=== PATIENT | female | born 1985 | race Caucasian/White ===

== ENCOUNTER 2016-10-12 19:21 | Emergency (ER) | payer OTHER ==
[~2016-10-12] VITALS: Ht 172.7 cm; Wt 117.0 kg
[2016-10-12 19:29] VITALS: BP 138/70; PULSE 105; RESP 18; O2SAT 98
[2016-10-12] MEDS ORDERED: Ondansetron 2 mg/mL 2 mL Inj IV PRN (19:45)
--- NOTE | 2016-10-12 19:56 | ED.REPORT ---
HPI-General Illness Date of Service Oct 12, 2016 ED Provider: Dr. De Santiago Pt is a healthy 30 y/o female presenting to the ED via EMS with family due to possible seizure which occurred prior to arrival. The patient [place] and walking over to get food and was feeling a "tingling funny" sensation throughout her entire body and suddenly fell over. Her family members were sitting at the counter eating and saw her become pale and fall over to the ground afterwards she appeared to be experiencing grand mal seizure-like activity which lasted less than 1 minute. Afterwards, security picked her up and she was experiencing abnormal lateral eye movements and muscle tensing. They do not describe a prolonged period of post-ictal state. For the past few days she has been experiencing posterior neck pain, fatigue, nausea, headache, diarrhea. She denies fever, vomiting. She has no history of similar symptoms. About 4 alcoholic drinks were consumed tonight and she drinks only about once per week. She takes no prescription medications. She denies any chance of . No PCP, first appointment scheduled for 10/18/[address] Estevez (sp?) in [place]. Nursing Notes Stated Complaint: POSSIBLE SEIZURE Chief Complaint: Seizure Nursing Notes Reviewed: Yes Allergies: Uncoded Allergies: TDAP (Allergy, Severe, Respiratory Arrest, 10/12/16) General Time Seen by MD: 19:56 Chief Complaint Seizure Hx Obtained From: Patient, EMS Arrived By: Ambulance Sudden in Onset?: Yes Onset Occurred: Just prior to arrival Symptom Duration: Since onset Location: : Head: Neck Quality: Aching Severity: Current: Mild Severity: Maximum: Mild Recent Healthcare: No recent doctor visit, No recent hospitalization Similar Sx Previous: No Past Medical History Past Medical History Healthy Past Surgical History None reported Smoking History Light Tobacco Smoker Social History Alcohol Use: "Social" Drug Use: Denies drug use Ambulatory Status Independent Review of Systems Full Review of Systems Constitutional: Reports: Fatigue, Malaise, Denies: Fever GI: Reports: Diarrhea, Nausea, Denies: Vomiting Musculoskeletal: Reports: Neck pain Neurologic: Reports: Change LOC, Headache, Seizure, Denies: Focal weakness, Numbness Complete sys rev & neg: except as marked. Physical Exam Vital Signs Vital Signs Date Time Temp Pulse Resp B/P Pulse Ox O2 Delivery O2 Flow Rate FiO2 10/12/16 23:34 36.9 94 17 126/54 100 Room Air 10/12/16 20:20 116 134/83 10/12/16 20:19 104 119/74 10/12/16 19:29 36.7 105 18 138/70 98 Room Air Initial VS: Reviewed, Vital signs abnormal Head / Eyes: Atraumatic, Normocephalic, PERRL ENT: Mucous membranes moist, Conjunctiva normal, No scleral icterus Respiratory: Breath sounds normal, Clear to auscultation, No respiratory distress Extremities: Vascular intact, Neuro intact, No swelling, No tenderness Skin: Warm, Dry, No cyanosis Psychiatric: Mood/affect normal, Behavior normal, Normal thought content General/Constitutional: Awake, Alert, No acute distress, Cooperative, Not toxic appearing Temp 37.1 by Neck: Atraumatic, Supple, No meningismus, Full range of motion, No adenopathy Cardiovascular: Regular rhythm, Heart sounds NL, No gallop, No murmurs, No rubs Heart Rate / Rhythm: Positive: Tachycardia Abdomen: Atraumatic, Soft, Non-tender, No guarding, No rebound, BS normoactive Interpretation & Diagnostics Lab Results Interpretation Result Diagram: 10/12/16191410/12/161914 Test 10/12/16 19:15 10/12/16 21:04 White Blood Count 12.4th/mm3 (3.8-10.1) Red Blood Count 4.78mil/mm3 (3.90-5.20) Hemoglobin 15.0g/dL (12.0-15.6) Hematocrit 42.9% (35.0-46.0) Mean Corpuscular Volume 89.7fL (81-100) Mean Corpuscular Hemoglobin 31.4pg (27.0-35.0) Mean Corpuscular Hemoglobin Concent 35.0% (32.0-37.0) Red Cell Distribution Width 12.4% (12.3-15.4) Platelet Count 263bil/L (150-400) Neutrophils (%) (Auto) 81.8% (40-74) Lymphocytes (%) (Auto) 9.5% (14-46) Monocytes (%) (Auto) 7.0% (4-12) Eosinophils (%) (Auto) 1.3% (0-5) Basophils (%) (Auto) 0.2% (0-3) Hold Purple Top Tube Received (Received) D-Dimer < 0.50mg/L FEU (<0.50) Hold Blue Top Tube Received (Received) Sodium Level 136mEq/L (134-144) Potassium Level 3.8mEq/L (3.5-5.2) Chloride Level 97mEq/L (97-108) Carbon Dioxide Level 19mmol/L (18-29) Blood Urea Nitrogen 17mg/dL (6-20) Creatinine 0.74mg/dL (0.57-1.00) Estimat Glomerular Filtration Rate 132mL/min (>59) Glucose Level 113mg/dL (60-99) Calcium Level 9.7mg/dL (8.5-10.1) Total Bilirubin 0.5mg/dL (0.0-1.2) Aspartate Amino Transf (AST/SGOT) 22U/L (0-50) Alanine Aminotransferase (ALT/SGPT) 22U/L (0-32) Alkaline Phosphatase 83U/L (25-150) Total Protein 8.3g/dL (6.4-8.4) Albumin 4.5g/dL (3.4-5.0) Hold [place] Top Tube Received (Received) Hold Urine Received (Received) Lab Results Interpretation: Field EKG shows sinus rhythm at rate 101 Urine dip: negative Urine preg: negative Urine drug screen: negative ECG Interpretation ECG Interpretation: Sinus tachycardia rate 104 NS IVCD Time: 20:22 Interpreted by: ED physician Normal ECG Interpretation: No acute ischemic changes CT Head Interpretation IMPRESSION: No acute intracranial abnormalities. Dictated by: Dede Young M.D. on 10/12/2016 at 21:18 Approved by: Dede Young M.D. on 10/12/2016 at 21:20 Study: Head CT no contrast Interpretation / Wet Read by: Interpret - Radiologist Re-Eval/Medical Decision Time of Eval: 22:32 Re-Evaluation/Progress Note: Pt rechecked. She is feeling better and was able to ambulate independently to the bathroom and back. Given her tachycardia opt to add a d-dimer. Counseled Regarding: Diagnosis, Lab results, Need for follow-up, When/why to return to ED Discharge & Departure Primary Impression: Syncope Syncope type: unspecified Qualified Code: R55 - Syncope and collapse Disposition: Home Discharge Condition All VS Reviewed: Yes Condition: Stable Patient Instructions: Syncope (ED) Additional Instructions: ED evaluation included interview exam ecg CT brain and chest x-ray. From the history it is much more likely that this is a faint (syncope) rather than a seizure. Rest and get adequate fluids. Avoid working at heights or driving until re-checked. follow up with primary care next week. return to ED if you have a recurrent episode. Scribe Attestation Portions of this note were transcribed by Cam Clarke and Celestino Burr. I, Dr. De Santiago, personally performed the history, physical exam and medical decision- making; I reviewed and confirmed the accuracy of the information in the transcribed note. Signed by Cam Clarke and Celestino Burr, [place], 10/12/16 - 2029 Gian De Santiago MD Oct 12, 2016 19:56 CAM CLARKE Oct 12, 2016 20:23
[2016-10-12 20:16] LABS: BASOPHILS % (AUTO) 0.2 % (0-3); EOSINOPHILS % (AUTO) 1.3 % (0-5); Mean Corpuscular Hemoglobin 31.4 pg (27.0-35.0); Mean Corpuscular Volume 89.7 fL (81-100); NEUTROPHILS % (AUTO) 81.8 % (40-74); Platelet Count 263 bil/L (150-400)
[2016-10-12 20:19] VITALS: BP 119/74; PULSE 104
[2016-10-12 20:20] VITALS: BP 134/83; PULSE 116
[2016-10-12] MEDS ORDERED: 0.9% Sodium Chloride 1,000 ML IV ONE ×2 (20:50→21:35)
--- NOTE | 2016-10-12 21:21 | DRSVH ---
PROCEDURE: CT BRAIN WITHOUT CONTRAST ([id number]) INDICATIONS: 30 year old woman with syncope. TECHNIQUE: Noncontrast 4.5 mm thick angled axial sections acquired from the foramen magnum to the vertex, with c oronal reformats. COMPARISON: None. FINDINGS: Image quality: Excellent. CSF spaces: Basal cisterns are patent. No extra-axial fluid collections. Ventricles are normal in size and shape. Brain: No midline shift. No intracranial masses or hemorrhage. Christensen-white matter interface is norm al. Skull and face: Calvarium and visualized facial bones are intact, without suspicious lesions. Sinuses: Visualized sinuses and mastoids are clear. IMPRESSION: No acute intracranial abnormalities. Dictated by: Dede Young M.D. on 10/12/2016 at 21:18 Approved by: Dede Young M.D. on 10/12/2016 at 21:20
[2016-10-12 23:34] VITALS: BP 126/54; PULSE 94; RESP 17; O2SAT 100
== END 2016-10-12 23:35 | disposition home or self-care (01) ==
LOC: SED 19:21
DX: R55 Syncope and collapse (principal); W18.39XA Other fall on same level, initial encounter; Y93.01 Activity, walking, marching and hiking; Y92.59 Other trade areas as the place of occurrence of the external cause; Y99.8 Other external cause status
CPT/HCPCS: 36415; 70450; 80053; 81025; 85025; 85378; 93005; 96361; 96374; 96375; 99285; J1885; J2405; J7030